=== PATIENT | female | born 1950 | race Caucasian/White ===

== ENCOUNTER 2017-05-02 05:10 | Inpatient (IN) ==
[2017-05-01 09:04] LABS: MANUAL DIFF NEEDED? NO
[2017-05-01 09:07] LABS: BASO% 0.4 % (0.0-0.8); EOS# 0.06 X1000 (0.0-0.7); EOS% 0.7 % (0.0-10.0); HEMATOCRIT 37.7 % (37.0-47.0); HEMOGLOBIN 12.3 g/dL (12.0-16.0); LYMPH# 2.24 X1000 (1.2-3.4); LYMPH% 26.6 % (20.5-51.1); MCH 30.4 PG (27-31); MCHC 32.6 g/dL (33-37); MCV 93.1 FL (81-99); MONO# 0.46 X1000 (0.11-0.59); MONO% 5.5 % (1.7-9.3); MPV 10.3 FL (7.4-10.4); NEUT% 66.8 % (42.2-75.2); PLT 293 X1000 (130-400); RBC 4.05 XMIL (4.2-5.4)
[2017-05-01 09:36] LABS: CALCIUM 9.1 mg/dL (8.8-10.2); POTASSIUM 4.6 mmol/L (3.5-5.1)
--- NOTE | 2017-05-01 10:39 | EKG Report ---
Test Performed on : 05/01/2017 08:47:05 AM Test Reason : PAT Blood Pressure : / mmHG Vent. Rate : 077 BPM Atrial Rate : 077 BPM P-R Int : 154 ms QRS Dur : 080 ms QT Int : 382 ms P-R-T Axes : 028 009 040 degrees QTc Int : 432 ms Normal sinus rhythm. Normal ECG When compared with ECG of 03-APR-2017 13:55, Sinus rhythm. has replaced Ectopic atrial rhythm. QRS axis shifted left Non-specific change in ST segment in Lateral leads T wave inversion no longer evident in Lateral leads Confirmed by Demario JI, Gonzalo Lai ([id number]) on 05/01/2017 11:39:42 AM
[2017-05-02] MEDS ORDERED: REGLAN ONE (05:40)
[2017-05-02] MEDS ORDERED: LR 1,000 ML ONE ×2 (05:40→09:00)
[2017-05-02] MEDS ORDERED: VANCOMYCIN 1 GM/NS 1 GM/250 ML IVPB ONE (05:40)
[2017-05-02] MEDS ORDERED: PEPCID ONE (05:40)
[2017-05-02] MEDS ORDERED: DIPRIVAN 1% ONE (06:26)
[2017-05-02] MEDS ORDERED: XYLOCAINE-MPF 2% ONE (06:27)
[2017-05-02] MEDS ORDERED: QUELICIN (DOSE) ONE ×2 (06:27→07:33)
[2017-05-02] MEDS ORDERED: FENTANYL ONE (06:27)
[2017-05-02] MEDS ORDERED: MARCAINE 0.25% PF/EPI 1:200,000 ONE (06:28)
[2017-05-02] MEDS ORDERED: XYLOCAINE 1% ONE (06:28)
[2017-05-02] MEDS ORDERED: NORCURON ONE (07:05)
[2017-05-02] MEDS ORDERED: ZOFRAN ONE (07:54)
[2017-05-02] MEDS ORDERED: DECADRON ONE (07:55)
[2017-05-02] MEDS ORDERED: OFIRMEV 1000 MG/ISOTONIC SOLN 1,000 MG/100 ML BOTTLE ONE (07:56)
[2017-05-02] MEDS ORDERED: ROBINUL ONE (08:01)
[2017-05-02] MEDS ORDERED: NEOSTIGMINE ONE (08:02)
[2017-05-02] MEDS: MORPHINE ONE ×3 (09:10→09:53)
--- NOTE | 2017-05-02 09:28 | OPERATIVE NOTE ---
PROCEDURE DATE: 05/02/2017 PREOPERATIVE DIAGNOSIS: A recurrent incarcerated incisional ventral hernia. POSTOPERATIVE DIAGNOSIS: A recurrent incarcerated incisional ventral hernia. PROCEDURE: 1. Open repair of incarcerated and recurrent incisional ventral hernia (primary repair). 2. Small-bowel resection with stapled [id number] functional end-to-end anastomosis. SURGEON: Clark Alonso MD REPRINT SORTER: Jamaal Miller MD. Jamaal Miller MD assisted with the dissection, repair and the small bowel resection. ANESTHESIA: General tracheal. INTRAOPERATIVE FINDINGS: Densely adherent small bowel to the previous mesh that has caused an unavoidable small bowel enterotomy. COMPLICATIONS: Small bowel injury. ESTIMATED BLOOD LOSS: 50 mL. SPECIMENS REMOVED: Small bowel. DRAINS: A 10-Citizen Of [place] flat drain. BRIEF HISTORY: The patient is a 67-year-old female, who has had recurrent hernia noted. Discussed with her extensively in the office about the risks, benefits, and alternatives. Discussed this at length and noted it in my chart from the office. She noted that the hernia was limiting her life and wanted it repaired, knowing full well the risk of the procedure. All questions were answered. DESCRIPTION OF PROCEDURE: After informed consent was obtained, patient brought to the operative theatre, transferred to operating table, placed in supine position. General tracheal anesthesia was then performed without complication. A formal time-out was then performed confirming patient, date, procedure. All were in agreement. At that time, attention was turned to the abdomen. She had a previous right lower quadrant vertical incision. After we prepped and draped the abdomen in sterile fashion, we went through his previous incision and encountered the hernia. The hernia essentially was a result of the previously placed mesh tearing away from the fascia on the lateral aspect allowing herniation. We dissected the mesh free from the lateral tissue and elevated it. There is a densely adherent small bowel that was incarcerated in the hernia that had to be taken down with sharp dissection. There was an unavoidable small bowel injury made because the mesh was adherent straight to the serosa. There was no plane between the small bowel and the serosa. We were able to whipstitch the enterotomy closed. We continued dissecting out the small bowel to free up the hernia itself. The hernia defect measured at least 5 cm in maximal diameter. Once we had freed up all the tissue, we performed our small bowel resection and stapled across the 2 ends of the viable bowel and performed a stapled [id number] functional end-to-end anastomosis with good results. We did over sew the staple line and placed a stitch in the crotch of the anastomosis. There was a patent lumen. The mucosa was viable. We dunked this area back in the abdomen. The area was as protected as possible. We did not have any omentum to cover up the anastomosis. We irrigated out the area copiously. We examined the defect again. It measured approximately [address] Miller and I had a lengthy discussion about the possible options. Given the contamination, we elected to not place a new piece of permanent mesh given the risk of infection. The fascial edges were amenable to primary closure. We felt as though a biologic would not potentially aid in the closure at this point. We irrigated the area. Mobilized the fascial edges as much as possible. The lateral fascial edge was not very strong but it was the best tissue that she had possible. We sutured some of the previously well-incorporated mesh into the repair and closed it with interrupted #1 Vicryl and we also placed an additional 0 PDS sutures. We had a decent fascial reapproximation. We irrigated out the area copiously. Given the large defect, we elected to place a drain tunnelled laterally into the subcutaneous tissue. We closed the skin in layers using 3-0 Vicryl and jerry for the skin. The patient tolerated procedure well and had an abdominal binder placed. We will monitor postoperatively and await for return of bowel function. I did discuss the complications of small-bowel injury with the family in the postoperative period in the waiting room. cc: Clark Alonso MD
[2017-05-02] MEDS ORDERED: ZOFRAN IV PRN (11:00)
[2017-05-02] MEDS: LEVAQUIN 750 MG/D5W 750 MG/150 ML IVPB IV SCH (13:09)
[2017-05-02] MEDS: LR 1,000 ML IV SCH ×2 (13:09→21:42)
[2017-05-02] MEDS: NORCO-10 PO PRN ×2 (15:12→23:43)
[2017-05-02] MEDS: FLAGYL 500 MG/NS 500 MG/100 ML IVPB IV SCH ×2 (15:13→21:42)
[2017-05-02] MEDS ORDERED: ANAPROX PO SCH (21:00)
[2017-05-02] MEDS: BUSPAR PO SCH (21:40)
[2017-05-02] MEDS: TENORMIN PO SCH (21:40)
[2017-05-02] MEDS: PRAVACHOL PO SCH (21:41)
[2017-05-02] MEDS: PERIDEX MT SCH (21:41)
[2017-05-02] MEDS: LASIX PO SCH (21:42)
[2017-05-02] MEDS: NON-FORMULARY MED PO SCH (21:49)
[2017-05-03] MEDS: FLAGYL 500 MG/NS 500 MG/100 ML IVPB IV SCH ×3 (04:23→21:56)
[2017-05-03] MEDS: NORCO-10 PO PRN ×3 (05:49→17:53)
[2017-05-03] MEDS: SYNTHROID PO SCH ×2 (05:49→06:10)
[2017-05-03] MEDS ORDERED: ANORO ELLIPTA 62.5-25 MCG INH INH SCH (07:30)
--- NOTE | 2017-05-03 08:00 | PROGRESS NOTE ---
DATE: 05/03/2017 SUBJECTIVE: Feels well. Just sore at her incisions. She is having flatus. No nausea, vomiting. Tolerating clears. No fevers or tachycardia overnight. LABORATORY DATA: Nothing new this morning. OBJECTIVE: Abdomen is soft, appropriately tender. Dressing is clean, dry, and intact GABINO, serosanguineous. ASSESSMENT/PLAN: A 67-year-old female status post incisional hernia repair that required a bowel resection due to dense adhesions. She is tolerating clears, but given the bowel resection, we will go slow with her diet and advance her to full liquids, then maybe regular tomorrow. Otherwise out of bed and increase her mobility. cc: MD Clark Gilbert MD
[2017-05-03] MEDS: LR 1,000 ML IV SCH (10:28)
[2017-05-03] MEDS: NON-FORMULARY MED PO SCH ×2 (10:29→21:57)
[2017-05-03] MEDS: TENORMIN PO SCH ×2 (10:30→21:56)
[2017-05-03] MEDS: ALTACE PO SCH (10:30)
[2017-05-03] MEDS: LASIX PO SCH ×2 (10:30→21:56)
[2017-05-03] MEDS: PEPCID PO SCH (10:30)
[2017-05-03] MEDS: BUSPAR PO SCH ×2 (10:30→21:56)
[2017-05-03] MEDS: LYRICA PO SCH ×3 (10:35→17:53)
[2017-05-03] MEDS: PERIDEX MT SCH ×2 (10:35→21:57)
[2017-05-03] MEDS: LOVENOX SUBQ SCH (14:33)
[2017-05-03] MEDS: LEVAQUIN 750 MG/D5W 750 MG/150 ML IVPB IV SCH (16:10)
[2017-05-03] MEDS: PRAVACHOL PO SCH (21:56)
[2017-05-04] MEDS: NORCO-10 PO PRN ×5 (00:02→21:41)
[2017-05-04] MEDS ORDERED: PNEUMOVAX 23 IM ONE (04:33)
[2017-05-04] MEDS: SYNTHROID PO SCH ×2 (05:50→07:00)
[2017-05-04] MEDS: FLAGYL 500 MG/NS 500 MG/100 ML IVPB IV SCH (05:50)
[2017-05-04] MEDS: LR 1,000 ML IV SCH (06:50)
[2017-05-04] MEDS: LYRICA PO SCH ×3 (09:25→17:05)
[2017-05-04] MEDS: LOVENOX SUBQ SCH (09:25)
[2017-05-04] MEDS: BUSPAR PO SCH ×2 (09:25→21:41)
[2017-05-04] MEDS: PEPCID PO SCH (09:26)
[2017-05-04] MEDS: PERIDEX MT SCH ×2 (09:26→21:41)
[2017-05-04] MEDS: TENORMIN PO SCH ×2 (09:26→21:43)
[2017-05-04] MEDS: ALTACE PO SCH (09:26)
[2017-05-04] MEDS: LASIX PO SCH ×2 (09:26→21:43)
[2017-05-04] MEDS: NON-FORMULARY MED PO SCH ×2 (09:28→21:43)
--- NOTE | 2017-05-04 09:33 | PROGRESS NOTE ---
DATE: 05/04/2017 SUBJECTIVE: She feels well. She is having normal bowel function. No nausea or vomiting. Tolerated a liquid diet yesterday. OBJECTIVE: Vital signs: No fevers. No tachycardia. Abdomen: Soft. Appropriately tender. Dressing is clean, dry, intact. GABINO drain serosanguineous. LABS: No new labs this morning. ASSESSMENT AND PLAN: This is a 67-year-old female status post incisional hernia repair with small bowel resection related to dense adhesions. She has had bowel function. She is overall doing very well from a surgical standpoint. We will advance her diet to soft today. She had decreased mobility related to degenerative joint disease and will ensure that she is at least at her baseline prior to going home but I suspect she will be ready in the next 24-48 hours. cc: MD Clark Gilbert MD
[2017-05-04] MEDS: PRAVACHOL PO SCH (21:41)
[2017-05-05] MEDS: NORCO-10 PO PRN ×2 (02:54→06:30)
[2017-05-05] MEDS: SYNTHROID PO SCH (06:30)
[2017-05-05 07:46] VITALS: BP 128/71
[2017-05-05] MEDS: PERIDEX MT SCH (09:08)
[2017-05-05] MEDS: LOVENOX SUBQ SCH (09:09)
[2017-05-05] MEDS: BUSPAR PO SCH (09:10)
[2017-05-05] MEDS: LYRICA PO SCH (09:10)
[2017-05-05] MEDS: TENORMIN PO SCH (09:11)
[2017-05-05] MEDS: ALTACE PO SCH (09:11)
[2017-05-05] MEDS: LASIX PO SCH (09:11)
[2017-05-05] MEDS: NON-FORMULARY MED PO SCH (09:13)
[2017-05-05] MEDS: PEPCID PO SCH (09:13)
--- NOTE | 2017-05-06 05:35 | DISCHARGE SUMMARY ---
ADMISSION DATE: 05/02/2017 DISCHARGE DATE: 05/05/2017 ADMITTING PHYSICIAN: Clark Alonso MD CONSULTS: None. PROCEDURES: On 05/02/2017, the patient underwent open primary repair of incisional hernia with small-bowel resection. BRIEF HISTORY AND COURSE OF STAY: Patient is a 67-year-old female with incarcerated recurrent incisional ventral hernia. We had a lengthy discussion in the office about repair, and the risks, benefits, alternatives were discussed. All questions were answered. She wanted to have it repaired. She was admitted on the above date and underwent previously described procedure which she tolerated. She did have to have a small-bowel resection given the dense adhesions. During the postoperative period, she did well. She was advanced to a soft diet. She was having bowel movements. Her pain was controlled. Her overall clinical picture was stable on 05/05/2017. At that time, it was felt the patient would be safe to be discharged home. Discussed this with the patient. She did have a GABINO drain, which I want to keep in her incision until I see her later this week or early next week. At the day of discharge, the patient was up and ambulating. Afebrile, moving and tolerating a diet. Therefore, we made all arrangements for her to be discharged home. She also needs to wear a binder at all times. cc: Clark Alonso MD
== END 2017-05-05 09:53 | disposition home or self-care (01) ==
LOC: OR 05:10 → 4N 05:10 → OBSVTOIN 09:24
PROVIDERS: ADMIT Surgery; ATTEND Surgery

== ENCOUNTER 2017-07-25 04:25 | Inpatient (IN) ==
[2017-07-25] MEDS ORDERED: PEPCID ONE (11:53)
[2017-07-25] MEDS ORDERED: LR 1,000 ML ONE ×2 (11:53→15:54)
[2017-07-25] MEDS ORDERED: REGLAN ONE (11:53)
[2017-07-25] MEDS ORDERED: LEVAQUIN 500 MG/D5W 500 MG/100 ML IVPB IV ONE (12:00)
[2017-07-25] MEDS ORDERED: FLAGYL 500 MG/NS 500 MG/100 ML IVPB IV ONE (12:00)
[2017-07-25] MEDS ORDERED: LEVAQUIN 750 MG/D5W 750 MG/150 ML IVPB IV ONE (13:00)
[2017-07-25] MEDS ORDERED: FENTANYL ONE (13:55)
[2017-07-25] MEDS ORDERED: DIPRIVAN 1% ONE (13:55)
[2017-07-25] MEDS ORDERED: XYLOCAINE-MPF 2% ONE (13:56)
[2017-07-25] MEDS ORDERED: SODIUM CHLORIDE 0.9% 10 ML ONE (13:56)
[2017-07-25] MEDS ORDERED: NORCURON ONE (13:56)
[2017-07-25] MEDS ORDERED: ZOFRAN ONE (14:57)
[2017-07-25] MEDS ORDERED: NEOSPORIN G.U. IRRIGANT ONE (14:57)
[2017-07-25] MEDS ORDERED: NEOSTIGMINE ONE (14:57)
[2017-07-25 14:58] LABS: URINE MICRO REVIEW NEEDED? NO; URINE SOURCE CATH
[2017-07-25 15:09] LABS: BILIRUBIN URINE NEGATIVE (NEGATIVE); BLOOD URINE NEGATIVE (NEGATIVE); COLOR STRAW; GLUCOSE URINE NEGATIVE (NEGATIVE); LEUKOCYTES URINE NEGATIVE (NEGATIVE); NITRITE URINE NEGATIVE (NEGATIVE); PROTEIN URINE NEGATIVE (NEGATIVE); SP GRAVITY URINE 1.002; TURBIDITY URINE CLEAR (CLEAR); UR EPITHELIAL CELLS <10 /HPF (<10); URINE BACTERIA NEGATIVE /HPF; URINE RBC <10 /HPF (<10); URINE WBC <10 /HPF (<10); UROBILINOGEN URINE NORMAL (NORMAL)
[2017-07-25] MEDS ORDERED: LABETALOL ONE (15:51)
[2017-07-25] MEDS ORDERED: APRESOLINE ONE (16:12)
[2017-07-25] MEDS ORDERED: DUONEB (A & A) ONE (16:16)
[2017-07-25] MEDS ORDERED: MORPHINE ONE (17:47)
[2017-07-25] MEDS: BUSPAR PO ONE ×2 (18:15→18:32)
[2017-07-25] MEDS ORDERED: ZOFRAN IV PRN (18:29)
--- NOTE | 2017-07-25 18:44 | OPERATIVE NOTE ---
PROCEDURE DATE: 07/25/2017 PREOPERATIVE DIAGNOSIS: Chronic abdominal wound. POSTOPERATIVE DIAGNOSIS: Chronic abdominal wound. PROCEDURES: 1. Debridement of chronic abdominal wound, skin and subcutaneous tissue measuring 160 square cm. 2. Removal of old mesh. 3. Placement of negative pressure wound dressing. SURGEON: Clark Alonso MD. BARIATRIC COORDINATOR: None. ANESTHESIA: General tracheal. INTRAOPERATIVE FINDINGS: Capsule that was noted in the area of the chronic wound with old mesh essentially had detached from the surrounding scar tissue and fascia, that looked chronically infected. There was a small defect measuring 0.5 cm. It looked like there was bowel nearby. We tried to probe the area, but did not find a fistula. We tried pressing the area to see if we could get any succus out, but we did not, but this may be an area of the fistula. The wound itself measured 14 x 11 x 3 cm when we were done. ESTIMATED BLOOD LOSS: 20 mL. BRIEF HISTORY: The patient is a 67-year-old female who has had multiple surgeries from repair of ventral incisional hernia. She had a piece of mesh placed by Dr. Keith several years ago. I attempted to repair the recurrent hernia approximately 2 months ago. She developed a subcutaneous infection. I had left an old piece of mesh in her abdomen, because it was well incorporated. This area became detached, then became a nidus for infection. We were having difficulty and there was a concern that she might be developing some fistula. Therefore, we discussed with her taking her to the operating room and debriding the area. I discussed with the patient. She had a complication rate of up to 70% on this. She voiced understanding and wished to proceed with procedure. DESCRIPTION OF PROCEDURE: After informed consent was obtained, patient brought to the operative theatre, transferred to the operative table, placed in supine position. General endotracheal anesthesia was then performed without complication. A formal time-out was then performed, confirming patient, date, procedure. All were in agreement. At that time, attention directed to the abdomen in the right lower quadrant where previous hernia repair was, where her chronic wound was. We opened this old incision, carried down subcutaneous tissue. We encountered a chronic wound capsule which we debrided back. We then entered into the capsule and found an area of wound and mesh. The mesh looked chronically infected. I sharply debrided back as much as I could, approximately removing 95-99% of the mesh. There was still some that was well incorporated that I thought I might damage surrounding bowel if I took off, but I removed the vast majority. There was a small defect in the fascia that measured 5 mm that was concerning for a fistula. We examined the area and tried to probe the area, but we did not see any drainage of succus or stool. We pressed the area several times to see if we can get any kind of drainage, but we could not. We debrided the wound as best we could of approximately 160 sq cm. We irritated the surrounding capsule wall to try to get it to ease down. We then elected to place a wound VAC after opening the wound. We placed several sheets of Adaptic down on top of the area we thought the potential fistula was. We placed a black sponge, we did place a black sponge, down to the area that was tunneling on the right side. The area was then covered with a drape and connected to suction. We connected it to -75 continuous suction. Did not suck too hard on the area to promote drainage. The patient tolerated procedure well. Was transferred to the recovery room in stable condition. Postoperatively, we will monitor her over the weekend, potentially further. We will keep her on antibiotics and change the wound VAC on Friday. cc: Clark Alonso MD
[2017-07-25] MEDS: DUONEB (A & A) INH SCH ×2 (19:30→23:40)
[2017-07-25] MEDS: MORPHINE IV PRN (19:50)
[2017-07-25] MEDS: LR 1,000 ML IV SCH (19:53)
[2017-07-25] MEDS: FLAGYL 500 MG/NS 500 MG/100 ML IVPB IV SCH (22:26)
[2017-07-25] MEDS: TENORMIN PO SCH (23:23)
[2017-07-25] MEDS: PRAVACHOL PO SCH (23:23)
[2017-07-26] MEDS: LR 1,000 ML IV SCH ×3 (00:38→23:48)
[2017-07-26] MEDS: MORPHINE IV PRN ×4 (03:11→23:18)
[2017-07-26] MEDS: DUONEB (A & A) INH SCH ×6 (03:40→22:50)
[2017-07-26] MEDS: FLAGYL 500 MG/NS 500 MG/100 ML IVPB IV SCH ×3 (05:30→21:56)
[2017-07-26] MEDS: SYNTHROID PO SCH (06:26)
[2017-07-26 08:06] LABS: INR 1.05; PROTIME 11.1 Seconds (9.2-11.7)
[2017-07-26] MEDS: TENORMIN PO SCH ×2 (09:02→23:48)
[2017-07-26] MEDS: ALTACE PO SCH (09:02)
[2017-07-26] MEDS: BUSPAR PO SCH ×2 (09:03→22:01)
[2017-07-26] MEDS: LYRICA PO SCH ×3 (09:03→16:56)
[2017-07-26] MEDS: LASIX PO SCH ×2 (09:03→22:02)
[2017-07-26] MEDS: PEPCID PO SCH (09:03)
[2017-07-26] MEDS: NORCO-10 PO PRN (10:04)
[2017-07-26 12:05] LABS: MPV 9.7 FL (7.4-10.4)
[2017-07-26] MEDS ORDERED: NS 250 ML ONE (13:04)
[2017-07-26] MEDS ORDERED: LOVENOX SUBQ SCH (14:00)
--- NOTE | 2017-07-26 14:57 | PROGRESS NOTE ---
DATE: 07/26/2017 SUBJECTIVE: She denies severe pain, nausea or vomiting, fever or chills. OBJECTIVE: Vital signs: She is afebrile. Vital signs are stable. General: She is alert and oriented x4. No acute distress. GI: Soft. Nondistended. Minimally tender. The wound VAC is intact with good seal. LABORATORY: Platelet count 395,000. INR 1.05. ASSESSMENT/PLAN: A 67-year-old female, status post wound debridement, drainage of abscess, mesh excision and placement of wound VAC. She looks stable she can continue a soft diet and we will make arrangements to transfer her to the floor I will keep her on IV antibiotics. Given the wound infection and we will continue the wound VAC through the weekend. cc: MD Clark Henry MD
[2017-07-26] MEDS: LEVAQUIN 750 MG/D5W 750 MG/150 ML IVPB IV SCH (15:47)
[2017-07-26] MEDS: PRAVACHOL PO SCH (22:01)
[2017-07-27] MEDS: DUONEB (A & A) INH SCH ×6 (02:42→22:50)
[2017-07-27] MEDS: LR 1,000 ML IV SCH ×4 (03:33→17:41)
[2017-07-27] MEDS: MORPHINE IV PRN ×5 (03:34→23:42)
[2017-07-27] MEDS: FLAGYL 500 MG/NS 500 MG/100 ML IVPB IV SCH ×2 (05:14→17:53)
[2017-07-27] MEDS: SYNTHROID PO SCH ×2 (05:56→06:06)
[2017-07-27] MEDS: ANORO ELLIPTA 62.5-25 MCG INH INH SCH (08:04)
[2017-07-27] MEDS: ALTACE PO SCH (09:31)
[2017-07-27] MEDS: BUSPAR PO SCH ×2 (09:31→22:09)
[2017-07-27] MEDS: LASIX PO SCH ×2 (09:31→22:09)
[2017-07-27] MEDS: LYRICA PO SCH ×3 (09:31→17:55)
[2017-07-27] MEDS: TENORMIN PO SCH ×3 (09:32→22:10)
[2017-07-27] MEDS: PEPCID PO SCH (09:32)
[2017-07-27] MEDS: NORCO-10 PO PRN ×2 (09:32→12:39)
[2017-07-27] MEDS: LEVAQUIN 750 MG/D5W 750 MG/150 ML IVPB IV SCH (14:07)
--- NOTE | 2017-07-27 14:19 | PROGRESS NOTE ---
DATE: 07/27/2017 SUBJECTIVE: The patient has no new complaints other than her wound VAC had a "blow out." She is eating and without nausea or vomiting. OBJECTIVE: Vital signs: She is afebrile. Vital signs are stable. General: She is alert and oriented x4. No acute distress. Gastrointestinal: Soft, nondistended. Tender around the wound. The wound VAC has been replaced with a good seal. There is no surrounding erythema. ASSESSMENT/PLAN: A 67-year-old female, status post debridement of abdominal wall wound and removal of infected mesh and placement of wound vacuum-assisted closure. She will remain on IV antibiotics. There still remains concern for ongoing infection. The nurse who changed the wound VAC said there was quite a bit of malodorous brown semisolid drainage in the wound. Dr. Alonso is to reassess tomorrow. cc: MD Clark Henry MD
[2017-07-27] MEDS: PRAVACHOL PO SCH (22:09)
[2017-07-28] MEDS: FLAGYL 500 MG/NS 500 MG/100 ML IVPB IV SCH ×3 (01:10→16:07)
[2017-07-28] MEDS: LR 1,000 ML IV SCH ×3 (01:10→18:10)
[2017-07-28] MEDS: DUONEB (A & A) INH SCH ×6 (02:50→23:10)
[2017-07-28] MEDS: NORCO-10 PO PRN ×4 (03:34→19:21)
--- NOTE | 2017-07-28 06:16 | PROGRESS NOTE ---
DATE: 07/28/2017 SUBJECTIVE: Patient doing okay. She says she is feeling better. No major issues reported overnight by the nursing staff. OBJECTIVE: Vital Signs: Patient is currently afebrile. Temperature 99.7 degrees, vital signs remain stable. General: No acute distress. Cardiovascular: Regular rate and rhythm. Lungs: Grossly clear. Abdomen: Soft. Wound VAC in place with good seal. ASSESSMENT/PLAN: A 67-year-old, female, status post wound exploration and debridement and placement of a negative pressure wound dressing after removal infected mesh. Postoperative state. At this time we will have wound care remove the wound VAC. There is some concern given the fact that she had some issues with the wound VAC yesterday. By report the nursing staff left to get a new canister filled up, and by the time they came back the whole apparatus was off. There is some concern the patient may be tampering with his wound VAC although there is no exact evidence of this. Regardless we will have Ana with Wound Care take the wound VAC down today and reevaluate it. I do not see anything that looks like stool or succus come into the tubing at this time. cc: Clark Alonso MD
[2017-07-28] MEDS: SYNTHROID PO SCH (06:32)
[2017-07-28] MEDS: ANORO ELLIPTA 62.5-25 MCG INH INH SCH (07:38)
[2017-07-28] MEDS: PEPCID PO SCH (08:36)
[2017-07-28] MEDS: TENORMIN PO SCH ×2 (08:36→22:33)
[2017-07-28] MEDS: LASIX PO SCH ×2 (08:37→20:23)
[2017-07-28] MEDS: BUSPAR PO SCH ×2 (08:37→20:24)
[2017-07-28] MEDS: LYRICA PO SCH ×3 (08:37→16:07)
[2017-07-28] MEDS: ALTACE PO SCH (08:37)
[2017-07-28] MEDS: LEVAQUIN 750 MG/D5W 750 MG/150 ML IVPB IV SCH (11:48)
[2017-07-28] MEDS: MORPHINE IV PRN ×2 (14:16→21:46)
[2017-07-28] MEDS: PRAVACHOL PO SCH (20:23)
[2017-07-29] MEDS ORDERED: TYLENOL PO PRN (00:44)
[2017-07-29] MEDS: DUONEB (A & A) INH SCH ×6 (02:30→23:00)
[2017-07-29] MEDS: MORPHINE IV PRN ×4 (02:52→19:34)
[2017-07-29] MEDS: FLAGYL 500 MG/NS 500 MG/100 ML IVPB IV SCH ×3 (02:55→16:31)
[2017-07-29] MEDS: SYNTHROID PO SCH (06:04)
--- NOTE | 2017-07-29 07:13 | Diag Imaging Result Doc PS360 ---
EXAM: CHEST-1 VIEW HISTORY: Low grade fever, post-operative TECHNIQUE: Portable AP COMPARISON: 04/03/2017 FINDINGS: The lungs are well expanded. The heart is not enlarged. The vessels are not distended. There are no infiltrates. No effusion identified. There is a right-sided PICC line. The tip overlies the distal superior vena cava. Several scattered granuloma. Likely atelectasis in the right base. IMPRESSION: 1.Right-sided PICC line in good position 2.Right basilar atelectasis. Electronically signed by [employer] 07/29/2017 7:11 AM
--- NOTE | 2017-07-29 07:44 | PROGRESS NOTE ---
DATE: 07/29/2017 SUBJECTIVE: Patient's wound VAC changed at the bedside. No obvious drainage, succus, or stool noted by the wound care nurse. I discussed the plan with her. OBJECTIVE: Vital Signs: Patient is currently afebrile, though, she had a temperature max of 100.2. This seems to be isolated. Current temperature is 98.4 degrees. Remainder of her vitals are normal. General: No acute distress, resting comfortably. Cardiovascular: Regular rate and rhythm. Lungs: Grossly clear. Abdomen: Soft. Wound VAC in place with good seal. No stool or succus drainage noted in the tubing. LABORATORY: None. ASSESSMENT AND PLAN: A 67-year-old female, status post wound exploration, debridement, and placement of negative pressure wound dressing. Postoperative state. At this time, the patient seems to be doing okay. We will likely keep the patient until Friday to have her wound VAC changed. At that time, I would like the patient be discharged to a rehab facility. Given her mild temperature, I will check a chest x-ray. I will remove her Babb catheter. She is currently on antibiotics Levaquin and Flagyl. We will continue those for right now. cc: Clark Alonso MD
[2017-07-29] MEDS: ANORO ELLIPTA 62.5-25 MCG INH INH SCH (08:20)
[2017-07-29] MEDS: NORCO-10 PO PRN ×2 (08:45→14:49)
[2017-07-29] MEDS: PEPCID PO SCH (08:45)
[2017-07-29] MEDS: ALTACE PO SCH (08:45)
[2017-07-29] MEDS: BUSPAR PO SCH ×2 (08:46→20:36)
[2017-07-29] MEDS: LASIX PO SCH ×2 (08:46→20:36)
[2017-07-29] MEDS: TENORMIN PO SCH ×2 (08:46→22:31)
[2017-07-29] MEDS: LYRICA PO SCH ×3 (08:52→16:30)
[2017-07-29] MEDS: LR 1,000 ML IV SCH ×2 (11:16→14:46)
[2017-07-29] MEDS: LEVAQUIN 750 MG/D5W 750 MG/150 ML IVPB IV SCH (12:02)
[2017-07-29] MEDS: PRAVACHOL PO SCH (20:36)
[2017-07-30] MEDS: DUONEB (A & A) INH SCH ×6 (02:30→23:00)
[2017-07-30] MEDS: MORPHINE IV PRN ×5 (04:08→22:45)
[2017-07-30] MEDS: FLAGYL 500 MG/NS 500 MG/100 ML IVPB IV SCH ×3 (04:09→16:22)
[2017-07-30] MEDS: SYNTHROID PO SCH ×2 (05:41→06:57)
[2017-07-30] MEDS: LR 1,000 ML IV SCH ×4 (05:42→17:29)
--- NOTE | 2017-07-30 06:54 | PROGRESS NOTE ---
DATE: 07/30/2017 SUBJECTIVE: Patient doing about the same. No major changes. OBJECTIVE: Vital Signs: Patient is currently afebrile. Her vital signs have been stable. General: No acute distress. Resting comfortably. Cardiovascular: Regular rate and rhythm. Lungs clear. Abdomen soft. Wound VAC in place with good seal. Some brownish drainage noted. LABORATORY: None. ASSESSMENT AND PLAN: A 67-year-old, female, status post wound exploration, debridement, and placement of negative pressure wound dressing. Postoperative state: At this time, she seems to be the same. I will change her wound VAC today. Her chest x-ray workup from yesterday was essentially normal. She is on antibiotics. We will continue those for right now. We will need physical therapy to mobilize her to get rehab placement. cc: Clark Alonso MD
[2017-07-30] MEDS: ANORO ELLIPTA 62.5-25 MCG INH INH SCH (07:44)
[2017-07-30] MEDS: NORCO-10 PO PRN ×3 (08:00→20:18)
[2017-07-30] MEDS: LASIX PO SCH ×2 (08:00→20:18)
[2017-07-30] MEDS: PEPCID PO SCH (08:00)
[2017-07-30] MEDS: ALTACE PO SCH (08:00)
[2017-07-30] MEDS: TENORMIN PO SCH ×2 (08:06→20:18)
[2017-07-30] MEDS: LYRICA PO SCH ×3 (11:03→16:23)
[2017-07-30] MEDS: BUSPAR PO SCH ×3 (11:04→20:18)
[2017-07-30] MEDS: LEVAQUIN 750 MG/D5W 750 MG/150 ML IVPB IV SCH (12:58)
[2017-07-30] MEDS: PRAVACHOL PO SCH (20:18)
[2017-07-31] MEDS: FLAGYL 500 MG/NS 500 MG/100 ML IVPB IV SCH ×3 (01:37→17:24)
[2017-07-31] MEDS: DUONEB (A & A) INH SCH ×6 (03:40→23:02)
[2017-07-31] MEDS: MORPHINE IV PRN ×3 (03:45→14:28)
[2017-07-31] MEDS: LR 1,000 ML IV SCH ×2 (03:45→12:03)
[2017-07-31] MEDS: SYNTHROID PO SCH (06:35)
[2017-07-31] MEDS: NORCO-10 PO PRN ×4 (06:35→22:51)
--- NOTE | 2017-07-31 08:12 | PROGRESS NOTE ---
DATE: 07/31/2017 SUBJECTIVE: The patient doing about the same. We changed her wound VAC at the bedside. I did place burn matrix to the wound. Please see Ana Barrow's wound care nurse's note full details. The patient tolerated procedure well at the bedside. New wound VAC was placed. No major issues. Since then she has been doing relatively well. OBJECTIVE: Vital Signs: Patient is currently afebrile. Her vital signs have been stable. General Examination: No acute distress. Cardiovascular: Regular rate and rhythm. Lungs: Grossly clear. Abdomen: Soft. Wound VAC in place with good seal. LABORATORY: None. ASSESSMENT AND PLAN: A 67-year-old female, status post wound exploration, debridement, and placement of negative pressure wound dressing. Postoperative state at this time, she is doing about the same. We will plan on changing her wound VAC on Friday, given the fact the we used this burn matrix and reassess the wound at that time. Otherwise, she has been mobilized and evaluated by Physical therapy and plan on potential rehab on Friday. cc: Clark Alonso MD
[2017-07-31] MEDS: ANORO ELLIPTA 62.5-25 MCG INH INH SCH ×2 (08:44→08:53)
[2017-07-31] MEDS: LYRICA PO SCH ×3 (09:21→17:23)
[2017-07-31] MEDS: BUSPAR PO SCH ×2 (09:26→21:59)
[2017-07-31] MEDS: LASIX PO SCH ×2 (09:26→21:59)
[2017-07-31] MEDS: TENORMIN PO SCH ×2 (09:26→21:59)
[2017-07-31] MEDS: PEPCID PO SCH (09:26)
[2017-07-31] MEDS: ALTACE PO SCH (09:31)
[2017-07-31] MEDS: LEVAQUIN 750 MG/D5W 750 MG/150 ML IVPB IV SCH (11:50)
[2017-07-31] MEDS: PRAVACHOL PO SCH (21:59)
[2017-08-01] MEDS: FLAGYL 500 MG/NS 500 MG/100 ML IVPB IV SCH ×2 (01:54→10:30)
[2017-08-01] MEDS: DUONEB (A & A) INH SCH ×4 (03:57→16:00)
[2017-08-01] MEDS: NORCO-10 PO PRN ×2 (05:14→17:28)
[2017-08-01] MEDS: LR 1,000 ML IV SCH ×2 (05:14→10:39)
[2017-08-01] MEDS: SYNTHROID PO SCH (06:49)
[2017-08-01] MEDS: ANORO ELLIPTA 62.5-25 MCG INH INH SCH (07:22)
[2017-08-01] MEDS: MORPHINE IV PRN (08:56)
[2017-08-01] MEDS: BUSPAR PO SCH (10:30)
[2017-08-01] MEDS: TENORMIN PO SCH (10:31)
[2017-08-01] MEDS: ALTACE PO SCH (10:31)
[2017-08-01] MEDS: LASIX PO SCH (10:32)
[2017-08-01] MEDS: PEPCID PO SCH (10:38)
[2017-08-01] MEDS: LYRICA PO SCH (10:48)
--- NOTE | 2017-08-01 11:57 | PROGRESS NOTE ---
DATE: 08/01/2017 SUBJECTIVE: The patient doing about the same. No major issues. OBJECTIVE: Vital Signs: Patient is currently afebrile. Her vital signs are stable. General exam: No acute distress. Cardiovascular: Regular rate and rhythm. Lungs: Clear. Abdomen: Soft. Wound VAC in place. LABORATORY: None. ASSESSMENT AND PLAN: A 67-year-old female, status post wound exploration, debridement and placement of negative pressure wound dressing. 1. Postoperative state. At this time, patient is doing about the same. We will plan on changing her wound VAC today given the fact that she has some small residual mesh that I could not remove from a previous surgery 10 years ago. I am going to place a wound VAC that continuously instills Vashe to try to clean and sterilize the wound. This has been arranged and improved. She still has the burn matrix on her wound, which I hope has caused some degree of granulation to develop in that wound. Overall I think once she has everything arranged for this wound VAC, she could be transferred over to [facility] in [place]. Once everything is arranged, we will transfer potentially today. cc: Clark Alonso MD
[2017-08-01 16:45] VITALS: BP 131/58
--- NOTE | 2017-08-01 18:11 | DISCHARGE SUMMARY ---
ADMISSION DATE: 07/25/2017 DISCHARGE DATE: 08/01/2017 ADMITTING DIAGNOSIS: Chronic wound abdominal wall. DISCHARGE DIAGNOSIS: Status post an incision and debridement of skin and subcutaneous tissue, placement of negative pressure wound dressing and removal of old mesh. ADMITTING PHYSICIAN: Clark Alonso CONSULTATIONS: None. PROCEDURES: On 07/25/2017, the patient underwent excisional debridement of wound, removal of old mesh and placement of negative pressure wound dressing. BRIEF HISTORY AND COURSE OF STAY: The patient is a 67-year-old female, who I have been following for a [facility]. She has had a chronic wound from old previous hernia repair. It had been draining a lot of purulence, felt the potential for fistula versus a infected piece of mesh. Given this, we elected to bring the patient to the operating room. She underwent previously-described procedure, which she tolerated well. She had a wound VAC placed. At that time during the operation, we did not see a fistula, but we saw chronic, infected- appearing mesh, which we debrided back as much as we could. The fascia itself was intact. There was a small area that appeared to be where small bowel was protruding through, but, again, I did not see an active fistula or any active succus or stool drainage. She was admitted to the floor, which she tolerated well. Her postop period was essentially uncomplicated. She had several wound VACs placed and changed in the bedside. She did have a burn matrix placed to her wound on Friday, July 30, which she tolerated well. On August 01, the day of discharge, we did change her wound VAC again. We transitioned her over to an infusion wound VAC, where she had continuous infusion of Vashe to the wound. We felt that this would help with the decontamination of the mesh that was still there. The patient tolerated all wound VAC change. On day of discharge, she had everything arranged to be sent to [facility] in [place]. We made all arrangements. Her condition was stable. All her vital signs have been stable throughout the course of her stay. DISCHARGE CONDITION: Stable. DISPOSITION: [facility] at [place]. FOLLOWUP: The patient told to follow up with me in 2 weeks in the [facility]. PRESCRIPTIONS: The patient was continue all her medications. I gave her prescription for pain medicine. cc: Clark Alonso MD
== END 2017-08-01 17:49 ==
LOC: SURHOLD 04:25 → 4N 16:09 → SURHOLD 16:19 → ICU 18:10 → 4N 07-26 17:32
PROVIDERS: ADMIT Surgery; ATTEND Surgery